=== PATIENT | female | born 1950 | race Two or more races ===

== ENCOUNTER 2025-06-21 08:58 | Inpatient (IN) | payer OTHER ==
[~2025-06-21] VITALS: Ht 157.5 cm; Wt 74.1 kg
[~2025-06-21 08:58] MED LIST: AMLO1TAB21 PO; LOSA-533 PO
[2025-06-21] MEDS ORDERED: KETOROLAC TROMETH 30 MG/ML 1ML VIAL ONE (10:22)
[2025-06-21] MEDS: ROPIVACAINE 0.5% (5MG/ML) 20ML AMPULE IJ ONE (10:28)
[2025-06-21] MEDS: BUPIVACAINE 0.75% INJ 10ML MPV SDV IJ ONE (10:28)
[2025-06-21] MEDS ORDERED: MIDAZOLAM HCL 2MG/2ML 2ml VIAL (1mg/ml) ONE (10:31)
[2025-06-21] MEDS ORDERED: PROPOFOL 10 MG/ML 20 ML IV ONE (10:31)
[2025-06-21] MEDS ORDERED: fentaNYL CITRATE 100 MCG/2 ML VL ONE (10:31)
[2025-06-21] MEDS: ceFAZolin 2 GM/D5W50ml 50 ML IV ONE (11:00)
[2025-06-21] MEDS: CEFEPIME 1GM/50ML 50 ML IV ONE (11:00)
[2025-06-21] MEDS ORDERED: ONDANSETRON HCL 4 MG/2 ML VIAL ONE (11:12)
[2025-06-21] MEDS: MORPHINE SULF PF 5 MG/10 ML VIAL ONE (11:24)
[2025-06-21] MEDS: VANCOMYCIN HCL 1000 MG VL ONE (11:24)
[2025-06-21] MEDS: KETOROLAC TROMETH 30 MG/ML 1ML VIAL ONE (11:24)
[2025-06-21] MEDS: BUPIVACAINE 0.25% INJ 50ML VIAL ONE (11:24)
[2025-06-21] MEDS: SODIUM CHLORIDE 0.9% 1,000 ML IV SCH (11:30)
[2025-06-21] MEDS: TRANEXAMIC ACID 20 ML ONE (11:40)
--- NOTE | 2025-06-21 12:34 | DVHOP2 ---
Operative Report - 2 Report Details Date: 06/21/25 Preop Diagnosis: Left hip degenerative arthritis Postop Diagnosis: Left hip degenerative arthritis Surgeon: Ilya Mosqueda MD Plastics Seasoner Operator: Francisca AHN Anesthesiologist: Chanelle Anesthesia: Local, Regional Drains: Wang closed wound suction Implant: Nathalia cup size 50 with flat polyethylene liner, DonJoy nebula stem size six, 36 ceramic head neutral length Consent: The patient was informed of the risks and benefits of the procedure. These include but are not limited to complications of anesthesia, postoperative infection, incomplete relief of symptoms, recurrence of symptoms, damage to blood vessels, nerves and tendons, deep venous thrombosis, pulmonary embolism and possible need for repeat surgery in the future. Complications: None Estimated Blood Loss: 100 cc Fluids: See anesthesia record Findings: Left hip osteophytes, denuded cartilage with eburnated bone Indications for Surgery: Left hip degenerative arthritis with severe pain and functional impairment despite nonoperative management Name of Procedure Performed Left total hip arthroplasty Procedure Details Procedure Details: The patient was brought to the operating room and given spinal anesthetic with adequate analgesia obtained. The patient was positioned lateral decubitus with the operative side up, stabilized with hip positioners. Axillary roll applied and lower extremities well-padded. Preop patient received IV Ancef, cefepime and IV tranexamic acid. Surgical timeout was performed verifying patient, laterality and procedure. The hip and lower extremity were prepped and draped in sterile fashion. Incision was made over the greater trochanter. Subcutaneous dissection and hemostasis were performed with Bovie and aqua mantis. I identified the fascia which was incised with Bovie and Charnley retractor inserted. I identified the gluteus medius that was split at the junction of its anterior and middle thirds with Bovie then incised off the anterior greater trochanter. I incised the anterior gluteus minimus which was elevated off the capsule. I elevated the reflected head of the rectus. I then performed anterior capsulectomy with Bovie. I extended capsular incision posterior medially and superior laterally. The head was dislocated. Femoral neck cut was made with saw and head removed. Head diameter was calipered on the back table. I adjusted retractors to expose the acetabulum. I circumferentially removed labral tissue with Bovie. I removed foveal tissue with Bovie, curette and rongeur. I then began reaming sequentially paying attention to inclination and version as I went. I trialed which was stable so acetabular implant was brought into the field and tapped into the acetabulum with good fixation achieved. I inserted the central screw to close the insertion hole. I then brought up the flat liner which was spun to make sure there was no soft tissue entrapment then tapped in and stability verified. I then brought my attention to the proximal femur. The leg was placed in the sterile bag anteriorly. I cleaned up soft tissue at the greater trochanter shoulder with Bovie. I then used a rongeur to clip the lateral neck. I then used a box osteotome, canal finder and lateralizing rasp. I sequentially broached to size six. I revised the femoral neck cut with calcar planer. I trialed with a plus four neck length and [36] head which was stable. Intraoperative AP pelvis x-ray was obtained to verify length, offset and implant size. The hip was dislocated. Neck and head trial removed. Broach was removed. I tapped in the femoral implant with good fixation achieved. I again trialed and decided on using the 0 length as it was adequately stable and the plus four looked long on x-ray. I cleaned and dried the Marsh taper and tapped on the ceramic head. The hip was again reduced and tested for stability which was good. I irrigated with bactisure. [I injected soft tissue with local anesthetic which consisted of 40 cc of 0.25% Marcaine with epinephrine, 30 mg Toradol, 10 mL with Duramorph consisting of 5 mg.] I placed a 2 grams of vancomycin in the deep and superficial wound. I repaired the minimus and medius to the anterior greater trochanter with #[5] FiberWire in running fashion . I oversewed the repair with 0 Vicryl. I repaired the fascia with #1 Ethibond interrupted [id number]. Deep subcutaneous tissue was closed with 0 Vicryl. Superficial subcutaneous tissue was closed with 2-0 Vicryl. The skin was closed with rob. I then applied the Wang closed wound suction. Patient tolerated the procedure well and was brought to the recovery room in stable condition. Condition Stable Disposition Still a Patient ILYA MOSQUEDA MD Jun 21, 2025 12:34
--- NOTE | 2025-06-21 12:54 | DVH ---
CLINICAL INDICATION: SURGERY TECHNIQUE: 1 radiographic views of the left hip were obtained. Comparison: None FINDINGS/IMPRESSION: Postsurgical changes from left hip arthroplasty.
[2025-06-21 12:57] VITALS: RESP 17; O2SAT 93
--- NOTE | 2025-06-21 13:29 | DVH ---
CLINICAL INDICATION: postop TECHNIQUE: XY PELVIS AP Comparison: XY L HIP COMPLETE XRAY on DOS: 06/21/25 FINDINGS/IMPRESSION: : There is no evidence of acute fracture or dislocation. Diffuse osteopenia. Moderate to severe degenerative changes of the right hip. Expected findings post left hip arthroplasty.
[2025-06-21] MEDS ORDERED: HYDROmorphone HCL 2 MG/ML VL/or syr IV PRN (13:30)
[2025-06-21] MEDS ORDERED: ACETAMINOPHEN IV 1000 MG/100ML (10MG/ML) IV PRN (13:30)
[2025-06-21] MEDS: ONDANSETRON HCL 4 MG/2 ML VIAL IV ONE (13:30)
[2025-06-21] MEDS ORDERED: ceFAZolin 2 GM/D5W50ml 50 ML IV SCH (14:00)
[2025-06-21 15:30] VITALS: PULSE 81; RESP 16; O2SAT 98
[2025-06-21 16:00] VITALS: PULSE 82; RESP 14; O2SAT 99
[2025-06-21] MEDS: METOCLOPRAMIDE HCL 5MG/ml INJ 2ml VIAL IV ONE (16:29)
[2025-06-21] MEDS ORDERED: ACETAMINOPHEN 325 MG TAB PO SCH (18:00)
[2025-06-21 18:11] VITALS: BP 115/66; PULSE 84; RESP 16; TEMP 97.3; O2SAT 95
[2025-06-21] MEDS: ceFAZolin 2 GM/D5W50ml 50 ML IV SCH (18:16)
[2025-06-21] MEDS: KETOROLAC TROMETH 30 MG/ML 1ML VIAL IV SCH (18:18)
[2025-06-21 21:00] VITALS: BP 114/63; PULSE 82; RESP 17; TEMP 98.4; O2SAT 97
[2025-06-21] MEDS: PREGABALIN 25 MG CAP PO SCH (21:18)
[2025-06-22 00:27] VITALS: BP 134/66; PULSE 84; RESP 16; TEMP 97.5; O2SAT 96
[2025-06-22] MEDS: ceFAZolin 2 GM/D5W50ml 50 ML IV SCH (01:57)
[2025-06-22 04:41] VITALS: BP_SYST 120; BP_SYST 162; BP_DIAS 60; PULSE 85; RESP 17; TEMP 98.3; O2SAT 93
[2025-06-22 07:19] LABS: Chloride 105 mmol/L (98-107); Hematocrit 33.2 % (36.0-46.0); Hemoglobin 11.6 g/dL (12.2-16.2); Mean Corpuscular Hemoglobin 32.3 pg (28.0-32.0); Mean Corpuscular Volume 92.3 fL (80.0-100.0); Nucleated Red Blood Cells % 0.0 %; Sodium 139 mmol/L (136-145)
[2025-06-22 07:20] LABS: Anion Gap 10 (5-15); Carbon Dioxide 24 mmol/L (20-31)
[2025-06-22 07:25] LABS: BUN/Creatinine Ratio 13.2 (10.0-20.0); Blood Urea Nitrogen 9 mg/dL (9-23)
[2025-06-22 07:28] LABS: Calcium 8.5 mg/dL (8.7-10.4); Glucose 131 mg/dL (74-106); Potassium 3.3 mmol/L (3.5-5.1)
[2025-06-22 08:00] VITALS: PULSE 78; RESP 18; O2SAT 99
[2025-06-22 09:00] VITALS: BP 120/65; PULSE 78; RESP 18; TEMP 98; O2SAT 99
[2025-06-22] MEDS: LOSARTAN POTASSIUM 25 MG TAB PO SCH (10:00)
[2025-06-22] MEDS: APIXABAN 2.5 MG TAB PO SCH (10:00)
--- NOTE | 2025-06-22 11:20 | DVHDS2 ---
Discharge Summary Date of Admission Jun 21, 2025 at 11:28 Date of Discharge: Jun 22, 2025 Labs/Diagnostic Data: Laboratory Results Test 06/22/25 06:45 White Blood Count 10.6 10^3/uL (4.4-10.8) Red Blood Count 3.60 10^6/uL (4.0-5.20) Hemoglobin 11.6 g/dL (12.2-16.2) Hematocrit 33.2 % (36.0-46.0) Mean Corpuscular Volume 92.3 fL (80.0-100.0) Mean Corpuscular Hemoglobin 32.3 pg (28.0-32.0) Mean Corpuscular Hemoglobin Concent 35.0 g/dL (32.0-36.0) Red Cell Distribution Width 13.0 % (11.8-14.3) Platelet Count 209 10^3/uL (140-450) Mean Platelet Volume 7.7 fL (6.9-10.8) Neutrophils (%) (Auto) 85.5 % (37.0-80.0) Lymphocytes (%) (Auto) 8.0 % (10.0-50.0) Monocytes (%) (Auto) 6.4 % (0.0-12.0) Eosinophils (%) (Auto) 0.0 % (0.0-7.0) Basophils (%) (Auto) 0.1 % (0.0-2.0) Neutrophils # (Auto) 9.1 10 ^3/uL (1.6-8.6) Lymphocytes # (Auto) 0.9 10 ^3/uL (0.4-5.4) Monocytes # (Auto) 0.7 10 ^3/uL (0-1.3) Eosinophils # (Auto) 0 10 ^3/uL (0-0.8) Basophils # (Auto) 0 10 ^3/uL (0-0.2) Nucleated Red Blood Cells 0.0 % Sodium Level 139 mmol/L (136-145) Potassium Level 3.3 mmol/L (3.5-5.1) Chloride Level 105 mmol/L (98-107) Carbon Dioxide Level 24 mmol/L (20-31) Anion Gap 10 (5-15) Blood Urea Nitrogen 9 mg/dL (9-23) Creatinine 0.68 mg/dL (0.550-1.02) Glomerular Filtration Rate Calc 90 mL/min (>90) BUN/Creatinine Ratio 13.2 (10.0-20.0) Serum Glucose 131 mg/dL (74-106) Calcium Level 8.5 mg/dL (8.7-10.4) Other Laboratory Tests 06/22/25 06:45 Brief Hx & Hospital Course: Patient was brought to the hospital yesterday to undergo a left total hip arthroplasty. She tolerated the procedure well without complications and was kept overnight for postoperative observation. Patient has remained medically stable denying any overnight events and reports that she was able to get up and walk with the help of physical therapy and her walker and was able take a few steps down the rojas and back to her room yesterday by has not walked today but is ready to walk today. Patient notes that she has been performing gentle [id number]-[id number] exercises while in bed and is otherwise feeling well denying any other complaints or concerns during my evaluation and would like to go home. Condition at Discharge: Stable Final Diagnosis/Problems List Left hip degenerative arthritis Discharge Disposition: Home Discharge Instruct/Medications Diet: Regular Activity: See Comment Activity comment: Patient to remain WBAT with the assistance of a walker Follow Up/Referral: Patient to follow up with our office in 10-14 days for her first postoperative evaluation. Medications: Rx sent via our outpatient EMR system Scheduled Amlodipine Besylate (Amlodipine Besylate), 2.5 MG PO DAILY, (Reported) Losartan Potassium (Losartan Potassium), 25 MG PO DAILY, (Reported) Discontinued Medications Atenolol & Chlorthalidone (Tenoretic 50), DAILY, (Reported) Discontinued Reason: Prescription changed [Amlodipine Besyl5 Mg], DAILY, (Reported) Discontinued Reason: Prescription changed Discharge Statement: "Patient was advised to return to the ER or call 911 if any headaches, dizziness, shortness of breath, chest pain, abdominal pain, bleeding, fevers, or worsening of medical condition. Patient was counseled about treatment plan, medications, possible side effects, patientverbalized understanding. All questions were answered to the best of my ability. This discharge took greater then 30 minutes in planning, reviewing documentation, counseling the patient, and discussing with other team members." ASSESSMENT ASSESSMENT Assessment Left hip degenerative arthritis MORGAN IRBY Jun 22, 2025 11:20
--- NOTE | 2025-06-22 11:22 | DVHPN2 ---
Progress Note - Dictate Date Seen: Jun 22, 2025 Medical Necessity Reason Pt with a Central, PICC or Fol: No Subjective Patient was lying comfortably in bed during my evaluation reports some postoperative hip pain that has been somewhat improved with the help of pain medication. Patient reports that she was able to get up and walk with the help of physical therapy and her walker and was able to get a few steps down the rojas and back to her bed with minimal issues. Patient is otherwise feeling well denying any other complaints or concerns during my evaluation and would like to go home. vital signs Vital Sign Date Time Temp Pulse Resp B/P (MAP) Pulse Ox O2 Delivery O2 Flow Rate FiO2 06/22/25 10:00 120/65 06/22/25 09:00 98.0 78 18 99 98.0 06/22/25 08:00 Room Air* 0 21 Total Intake and Output 06/21/25 06/21/25 06/22/25 15:00 23:00 07:00 Intake Total 220 ml 675 ml 1650 ml Balance 220 ml 675 ml 1650 ml medications Current Medications Medications Dose Ordered Sig/Nohemy Route Start Time Stop Time Status Last Admin Dose Admin Losartan Potassium 25 mg DAILY PO 06/22/25 10:00 Amlodipine Besylate 5 mg DAILY PO 06/22/25 10:00 Pregabalin 50 mg BID PO 06/21/25 22:00 06/21/25 21:18 50 MG Apixaban 2.5 mg BID PO 06/22/25 10:00 07/27/25 09:59 Sodium Chloride 1,000 ml @ 125 mls/hr Q8H IV 06/21/25 11:30 06/22/25 04:00 125 MLS/HR Acetaminophen 650 mg Q6HP PO 06/21/25 18:00 Hold Ketorolac Tromethamine 15 mg Q6HR IV 06/21/25 18:00 06/26/25 17:59 06/22/25 10:15 15 MG Ondansetron HCl 4 mg Q4HP PRN IV 06/21/25 12:30 Tramadol HCl 50 mg Q4HP PRN PO 06/21/25 12:30 objective A&O x4 in no acute distress Hip range of motion grossly limited with pain on movement Wang dressing clean, dry, intact, and maintaining suction No distal edema or calf tenderness to palpation Neurovascularly intact with cap refill less than 2 seconds laboratory and microbiology Laboratory Tests 06/22/25 06:45 Test 06/22/25 06:45 Range/Units Serum Glucose 131 H 74-106 mg/dL Assessment/Plan Patient to be discharged home once she is able to walk with the assistance down the rojas to the nurse's station and back to her room. I advised the patient to remain weight-bearing as tolerated with the assistance of a walker and to maintain her dressings clean, dry, intact, and maintaining suction. I instructed the patient to follow up with our office in 10-14 days for her 1st postoperative evaluation and to call us if she has any further questions or concerns. Rx sent via our outpatient EMR system. Patient understood and agreed. Plan discussed with: Patient, Spouse MORGAN IRBY Jun 22, 2025 11:22
[2025-06-22 12:52] VITALS: BP 120/65; PULSE 78; RESP 18; TEMP 98; O2SAT 99
[2025-06-22 13:00] VITALS: BP 121/65; PULSE 84; RESP 18; TEMP 97.2; O2SAT 94
[2025-06-22] MEDS: ONDANSETRON HCL 4 MG/2 ML VIAL IV PRN (14:32)
== END 2025-06-22 16:10 | disposition home or self-care (01) | DRG 470 ==
LOC: SUR 08:58 → EDUNIT# 10:00 → OVERFLOW 11:28 → WEST WING 17:03
PROVIDERS: ADMIT Orthopaedic Surgery; ATTEND Orthopaedic Surgery
PROC: 0SRB04Z Replacement of Left Hip Joint with Ceramic on Polyethylene Synthetic Substitute, Open Approach (ICD-10-PCS; principal; 2025-06-21 10:49)
DX: M16.12 Unilateral primary osteoarthritis, left hip (principal); Z96.642 Presence of left artificial hip joint
CPT/HCPCS: 36415; 72170; 73502; 80048; 85025; 86850; 86900; 86901; 97116; 97163; G0378; J1100; J1885; J2250; J2405; J2704; J3490